=== PATIENT | male | born 1985 | race Caucasian/White ===

== ENCOUNTER 2017-12-29 11:40 | Emergency (ER) | payer OTHER ==
[~2017-12-29] VITALS: Ht 180.3 cm; Wt 181.4 kg
[2017-12-29 12:02] LABS: HEMOGLOBIN 15.4 gm/dL (14.0-18.0)
[2017-12-29 12:04] LABS: ABSOLUTE BASOPHILS 0.1 thou/uL (0.0-0.2); ABSOLUTE EOSINOPHILS 0.2 thou/uL (0.0-0.7); ABSOLUTE LYMPHOCYTES 2.3 thou/uL (0.8-5.3); BASOPHILS 0.7 %; EOSINOPHILS 1.8 %
[2017-12-29 12:07] LABS: ABSOLUTE MONOCYTES 0.8 thou/uL (0.0-1.2); ABSOLUTE NEUTROPHILS 6.4 thou/uL (1.6-8.1); HEMATOCRIT 43.4 % (42.0-52.0); LYMPHOCYTES 23.7 %; MCH 32.3 pg (26.0-34.0); MCHC 35.4 g/dL (28.0-37.0); MONOCYTES 8.1 %; MPV 8.3 fl. (7.2-11.1); NUCLEATED RBCS 0 /100WBC; PLATELET COUNT* 185 thou/uL (150-400); POLYS 65.7 %; RBC 4.77 mil/uL (4.50-6.00); RDW-CV 13.1 % (10.5-14.5); WBC 9.8 thou/uL (4.0-11.0)
[2017-12-29 12:13] LABS: ANION GAP 11 mmol/L (7-16); BUN 15 mg/dL (7-18); CALCIUM 8.8 mg/dL (8.5-10.1); CHLORIDE 104 mmol/L (98-107); CO2 24 mmol/L (21-32); CREATININE 0.9 mg/dL (0.6-1.3); GLUCOSE 109 mg/dL (70-99); POTASSIUM 3.9 mmol/L (3.5-5.1); SODIUM 139 mmol/L (136-145)
[2017-12-29 12:16] LABS: APTT 31.3 Seconds (25.0-31.3); INR 1.1; PROTIME 10.5 Seconds (9.20-11.50)
[2017-12-29 12:24] LABS: ALBUMIN 3.7 g/dL (3.4-5.0); ALKALINE PHOSPHATASE 93 U/L (46-116); LIPASE 83 U/L (73-393); NT-PRO BRAIN NAT PEPTIDE 68 pg/mL (<300); SGOT 33 U/L (15-37); SGPT 48 U/L (30-65); TOTAL BILIRUBIN 0.9 mg/dL (<0.1-1.0); TOTAL PROTEIN 7.5 g/dL (6.4-8.2); TROPONIN-I LEVEL <0.06 ng/mL (<0.06)
[2017-12-29 15:05] VITALS: BP 166/86
--- NOTE | 2017-12-30 17:06 | EKG ---
[place] [address] ELECTROCARDIOGRAM REPORT Name: PASCUAL CARTY Room: [facility]#: [id number] Admission: 12/29/17 Attend Phys: Discharge: 12/29/17 Date of : 81 Report #: [id number] THIS REPORT FOR: //name// [facility] ED Test Date: 2017-12-29 Test Time: 11:43:43 Pat Name: PASCUAL CARTY Department: Room: Gender: M Feed In Worker: KELLY : 1985 Requested By: Shaun Aguirre Order Number: [id number] MD: Julien Monson Measurements Intervals [place] Rate: 95 P: 53 AK: 152 QRS: 1 QRSD: 94 T: 30 QT: 347 QTc: 436 Interpretive Statements Sinus rhythm No previous ECG available for comparison Electronically Signed On 12-30-2017 17:06:10 CDT by Julien Monson [email or web address] <ELECTRONICALLY SIGNED> By: Julien Monson MD, [facility] 12/30/17 1706 1143 1143 Julien Monson MD, FACC /EPI
== END 2017-12-29 15:05 | disposition home or self-care (01) ==
LOC: M.ERS 11:40
PROVIDERS: Nurse Practitioner Family
DX: R07.89 Other chest pain (principal); I10 Essential (primary) hypertension; F41.9 Anxiety disorder, unspecified